=== PATIENT | male | born 2000 | race African-American/Black ===

== ENCOUNTER 2021-03-17 13:19 | Emergency (ER) | payer OTHER ==
[~2021-03-17] VITALS: Ht 190.5 cm; Wt 110.0 kg
[2021-03-17 14:12] LABS: BASOPHILS % (AUTO) 0 % (0-10); EOSINOPHILS % (AUTO) 0 % (0-10); HEMATOCRIT 51 % (40-54); HEMOGLOBIN 17.9 g/dL (13.3-17.7); LYMPHOCYTES # (AUTO) 1.9 10^3/uL (1.0-4.0); LYMPHOCYTES % (AUTO) 16 % (12-44); MEAN CORPUSCULAR HEMOGLOBIN 31 pg (25-34); MEAN CORPUSCULAR HGB CONC 35 g/dL (32-36); MEAN CORPUSCULAR VOLUME 88 fL (80-99); MONOCYTES # (AUTO) 0.8 10^3/uL (0.0-1.0); MONOCYTES % (AUTO) 6 % (0-12); NEUTROPHILS # (AUTO) 9.5 10^3/uL (1.8-7.8); NEUTROPHILS % (AUTO) 78 % (42-75); PLATELET COUNT 319 10^3/uL (130-400); WHITE BLOOD COUNT 12.2 10^3/uL (4.3-11.0)
[2021-03-17] MEDS ORDERED: LACTATED RINGERS 1,000 ML IV SCH ×2 (14:15→14:45)
[2021-03-17 14:25] LABS: ALBUMIN 5.3 GM/DL (3.2-4.5)
[2021-03-17 14:26] LABS: CHLORIDE 99 MMOL/L (98-107); POTASSIUM 4.1 MMOL/L (3.6-5.0); SODIUM 137 MMOL/L (135-145)
[2021-03-17 14:27] LABS: CALCIUM 10.5 MG/DL (8.5-10.1)
[2021-03-17 14:28] LABS: GLUCOSE 91 MG/DL (70-105); TOTAL PROTEIN 9.1 GM/DL (6.4-8.2)
[2021-03-17 14:29] LABS: CARBON DIOXIDE 21 MMOL/L (21-32)
[2021-03-17 14:30] LABS: BILIRUBIN,TOTAL 2.9 MG/DL (0.1-1.0)
[2021-03-17 14:31] LABS: ALKALINE PHOSPHATASE 84 U/L (40-136)
[2021-03-17 14:32] LABS: CREATININE SERUM 1.88 MG/DL (0.60-1.30); GFR ESTIMATED 55
[2021-03-17 14:33] LABS: BUN/CREATININE RATIO 10
[2021-03-17 14:35] LABS: ALANINE AMINOTRANSFERASE 80 U/L (0-55)
--- NOTE | 2021-03-17 14:35 | ED General ---
General Chief Complaint: Exposure Stated Complaint: BODY CRAMPS Source of Information: Patient Exam Limitations: No Limitations History of Present Illness Date Seen by Provider: Mar 17, 2021 Time Seen by Provider: 14:34 Initial Comments To ER with diffuse body cramps that began during football practice today at [facility]. Is very hot and muggy outside today. No cough no fever no chills. Timing/Duration: 1-3 Hours Severity: Moderate Associated Systoms: Denies Symptoms Allergies and Home Medications Allergies Coded Allergies: No Known Drug Allergies (Unverified , 03/17/21) Patient Home Medication List Home Medication List Reviewed: Yes Review of Systems Review of Systems Constitutional: see HPI EENTM: see HPI Respiratory: no symptoms reported Cardiovascular: no symptoms reported Genitourinary: no symptoms reported Musculoskeletal: no symptoms reported Skin: no symptoms reported Psychiatric/Neurological: No Symptoms Reported Hematologic/Lymphatic: No Symptoms Reported Immunological/Allergic: no symptoms reported Physical Exam Vital Signs Vital Signs - First Documented 03/17/21 13:55 Temp 36.4 Pulse 100 Resp 18 B/P (MAP) 125/99 (108) Pulse Ox 97 O2 Delivery Room Air Capillary Refill : Height, Weight, BMI Height: '" Weight: lbs. oz. kg; BMI Method: General Appearance: No Apparent Distress, WD/WN Eyes: Bilateral Eye Normal Inspection, Bilateral Eye PERRL, Bilateral Eye EOMI HEENT: PERRL/EOMI, TMs Normal Neck: Full Range of Motion, Normal Inspection Respiratory: No Accessory Muscle Use, No Respiratory Distress Gastrointestinal: Normal Bowel Sounds, Non Tender, Soft Extremity: Normal Capillary Refill, Normal Inspection Neurologic/Psychiatric: Alert, Oriented x3 Skin: Normal Color, Warm/Dry Progress/Results/Core Measures Suspected Sepsis SIRS Temperature: Pulse: Respiratory Rate: Laboratory Tests 03/17/21 14:09: White Blood Count 12.2H Blood Pressure / Mean: Laboratory Tests 03/17/21 14:09: Creatinine 1.88H, Platelet Count 319, Total Bilirubin 2.9H Results/Orders Lab Results Laboratory Tests Test 03/17/21 14:09 Range/Units White Blood Count 12.2 H 4.3-11.0 10^3/uL Red Blood Count 5.77 H 4.30-5.52 10^6/uL Hemoglobin 17.9 H 13.3-17.7 g/dL Hematocrit 51 40-54 % Mean Corpuscular Volume 88 80-99 fL Mean Corpuscular Hemoglobin 31 25-34 pg Mean Corpuscular Hemoglobin Concent 35 32-36 g/dL Red Cell Distribution Width 12.5 10.0-14.5 % Platelet Count 319 130-400 10^3/uL Mean Platelet Volume 10.0 9.0-12.2 fL Immature Granulocyte % (Auto) 0 % Neutrophils (%) (Auto) 78 H 42-75 % Lymphocytes (%) (Auto) 16 12-44 % Monocytes (%) (Auto) 6 0-12 % Eosinophils (%) (Auto) 0 0-10 % Basophils (%) (Auto) 0 0-10 % Neutrophils # (Auto) 9.5 H 1.8-7.8 10^3/uL Lymphocytes # (Auto) 1.9 1.0-4.0 10^3/uL Monocytes # (Auto) 0.8 0.0-1.0 10^3/uL Eosinophils # (Auto) 0.0 0.0-0.3 10^3/uL Basophils # (Auto) 0.0 0.0-0.1 10^3/uL Immature Granulocyte # (Auto) 0.1 0.0-0.1 10^3/uL Sodium Level 137 135-145 MMOL/L Potassium Level 4.1 3.6-5.0 MMOL/L Chloride Level 99 98-107 MMOL/L Carbon Dioxide Level 21 21-32 MMOL/L Anion Gap 17 H 5-14 MMOL/L Blood Urea Nitrogen 18 7-18 MG/DL Creatinine 1.88 H 0.60-1.30 MG/DL Estimat Glomerular Filtration Rate 55 BUN/Creatinine Ratio 10 Glucose Level 91 70-105 MG/DL Calcium Level 10.5 H 8.5-10.1 MG/DL Corrected Calcium 8.5-10.1 MG/DL Total Bilirubin 2.9 H 0.1-1.0 MG/DL Aspartate Amino Transf (AST/SGOT) 231 H 5-34 U/L Alanine Aminotransferase (ALT/SGPT) 80 H 0-55 U/L Alkaline Phosphatase 84 40-136 U/L Total Creatine Kinase 38543 H 30-200 U/L Total Protein 9.1 H 6.4-8.2 GM/DL Albumin 5.3 H 3.2-4.5 GM/DL My Orders Orders - ELLI RUELAS APRN Cbc With Automated Diff (03/17/21 14:01) Comprehensive Metabolic Panel (03/17/21 14:01) Creatine Kinase (03/17/21 14:01) Ua Culture If Indicated (03/17/21 14:01) Ed Iv/Invasive Line Start (03/17/21 14:01) Lactated Ringers (Lr 1000 Ml Iv Solution (03/17/21 14:15) Lactated Ringers (Lr 1000 Ml Iv Solution (03/17/21 14:45) Vital Signs/I&O 03/17/21 13:55 Temp 36.4 Pulse 100 Resp 18 B/P (MAP) 125/99 (108) Pulse Ox 97 O2 Delivery Room Air Capillary Refill : Departure Communication (Admissions) 1533-No beds available here. [facility] Dr. Saravia has accepted the patient. Will transport via private vehicle. Impression Primary Impression: Heat exhaustion Additional Impression: Rhabdomyolysis Disposition: XFER SHT-TRM HOSP Condition: Stable Transfer Transfer Reason: Diversion Time Spoke to Accepting Phy: 15:35 Departure-Patient Inst. Decision time for Depature: 14:36 Patient Instructions: Heat Illness ED ELLI RUELAS APRN Mar 17, 2021 14:35
[2021-03-17 14:48] LABS: CREATINE KINASE 14688 U/L (30-200)
[2021-03-17 17:41] VITALS: BP 134/98
== END 2021-03-17 16:35 | disposition short-term general hospital (02) ==
LOC: ER 13:24
DX: T67.5XXA Heat exhaustion, unspecified, initial encounter (principal); M62.82 Rhabdomyolysis
CPT/HCPCS: 36415; 80053; 82550; 85025